=== PATIENT | female | born 1940 | race Caucasian/White ===

== ENCOUNTER → 2017-06-08 | Outpatient (CLI) | payer MEDICARE, OTHER ==
[~2017-06-08] VITALS: Ht 157.5 cm; Wt 48.9 kg
[~2017-06-08] MED LIST: ASPIRIN325 MG PO; GUMMI BEAR MUL1 EACH PO; LEVOTHROID (SY25 MCG PO; PROLIA60 MG/ML PO; RYTHMOL150 MG PO; XARELTO20 MG PO
--- NOTE | ~2017-06-08 | OR ---
PATIENT'S NAME: ZINA PERALES [facility] AGE: 76 Y [address] ROOM: [place] [id number] LOCATION: [facility] ADMIT DATE: 06/08/2017 OR/Procedure Report DISCHARGE DATE: FAMILY PHYSICIAN: Alessandra Patel APRN ATTENDING PHYSICIAN: Orly Culp SURGEON: Orly Culp MD AIRWAYS OPERATIONS SPECIALIST: DATE OF PROCEDURE: 06/08/2017 PROCEDURE PERFORMED: Cardioversion. INDICATION: Atrial fibrillation refractory to antiarrhythmic drug therapy. DESCRIPTION OF PROCEDURE: Ms. Perales was brought to the preoperative suite in the fasting state, prepped and draped in normal manner. Patches were placed in the AP dimension. MAC anesthesia was given through the nurse applications project manager. A total of 60 mg propofol was administered. Once adequate levels of sedation were obtained, 200 joules synchronized therapy was delivered with prompt buddhist of normal sinus rhythm. A 12- lead EKG is pending at the time of this dictation. CONCLUSION: 1. Successful buddhist of normal sinus rhythm using direct current cardioversion. 2. A 12-lead EKG is pending at the time of this dictation. I would like to thank Dr. Alessandra Patel for the opportunity to participate in the care of Mrs. Perales. ORLY CULP MD DJM/modl /[id number] CC: Alessandra Patel APRN d: 06/11/17 1040 t: 06/15/17 0913, OPERATIVE SUMMARY
== END | disposition disaster alternative care site (69) ==
LOC: GPOC 06-06 16:00
PROC: 5A2204Z Restoration of Cardiac Rhythm, Single (ICD-10-PCS; principal; 2017-06-08)
DX: I48.91 Unspecified atrial fibrillation (principal)
CPT/HCPCS: J2001; J2405; J7030